=== PATIENT | male | born 2000 | race Caucasian/White ===

== ENCOUNTER 2021-09-14 10:31 | Emergency (ER) | payer BC, SELFPAY ==
--- NOTE | 2021-09-14 10:38 | ED.URI ---
HPI - URI/Sore Throat General Chief Complaint: Upper Respiratory Infection Stated Complaint: cough, fever Time Seen by Provider: 09/14/21 10:41 Source: patient, family, RN notes reviewed and old records reviewed Mode of arrival: ambulatory Limitations: no limitations History of Present Illness HPI Narrative: 21-year-old male presents to the [facility] with mom with complaints of runny nose, postnasal drip, cough that started , 4 days ago. Had a fever yesterday. Patient is COVID vaccinated, not flu vaccinated. Mom mom reports giving Tylenol and ibuprofen. Denies chest pain or abdominal pain. No nausea vomiting or diarrhea MD elicited complaint: fever, cough and rhinorrhea Related Data Home Medications Medication Instructions Recorded Confirmed aripiprazole 15 mg PO DAILY 09/14/21 09/14/21 esomeprazole magnesium [Nexium] 20 mg PO DAILY 09/14/21 09/14/21 fluoxetine 10 mg PO DAILY 09/14/21 09/14/21 Allergies Allergy/AdvReac Type Severity Reaction Status Date / Time No Known Allergies Allergy Verified 09/14/21 10:46 Review of Systems Review of Systems: All systems reviewed & are unremarkable except as noted in HPI and below Constitutional: Constitutional: Reports as per HPI, Denies chills, Reports fever(s) and Denies headache(s) Eyes: Eyes: Reports no additional eye complaints ENT: Reports as per HPI, Denies vertigo, Denies dizziness, Denies headache(s), Denies lip swelling, Reports nasal congestion, Reports nasal discharge, Reports sinus pressure, Denies sore throat and Denies throat swelling Comments: Rhinorrhea Cardiovascular: Cardiovascular: Reports no additional cardiovascular complaints, Denies chest pain, Denies syncope, Denies rapid heart rate and Denies dyspnea Respiratory: Respiratory: Reports as per HPI, Reports cough, Denies dyspnea and Denies wheezing Gastrointestinal: Gastrointestinal: Reports no additional gastrointestinal complaints, Denies abdominal pain, Denies diarrhea, Denies nausea and Denies vomiting Musculoskeletal: Musculoskeletal: Reports no additional musculoskeletal complaints and Denies numbness Integumentary/Breasts: Skin/Breast: Reports system reviewed and no additional complaints, except as docu Neurologic: Reports system reviewed and no additional complaints, except as documented, Denies vertigo, Denies dizziness, Denies syncope, Denies headache(s), Denies focal weakness and Denies numbness Psychiatric: Psychiatric: Reports no additional psychiatric complaints Allergic/Immunologic: Allergic/Immunologic: Reports no additional allergic/immunologic complaints and Denies wheezing PMFSH Past Medical History Medical History (Updated 09/14/21 @ 10:54 by Suad Moreland APRN) Autism H/O gastroesophageal reflux (GERD) Surgical History Surgical History (Updated 09/14/21 @ 10:45 by Suad Moreland APRN) No pertinent past surgical history Social History Social History (Updated 09/14/21 @ 10:46 by Suad Moreland APRN) Living arrangements: with family Gender identity (if verbalized by the patient): Male Comments At the time of my signature, I reviewed and agree with the nursing past medical, surgical, social, and family history. There is no relevant family history pertinent to the patient complaint. Exam Const: General: cooperative, no acute distress, well developed, alert and ill appearing acutely (mild) Nutritional Appearance: well nourished Orientation/consciousness: patient oriented x3 Limitations: no limitations HENMT: Head: normal to inspection Ears: external ears normal, TM's normal bilaterally and EAC's normal General nose exam: Nasal discharge present mucoid Throat: tonsils normal, uvula midline and postnasal drainage Eyes: Conjunctivae: conjunctivae normal Pupils: Equal, round and reactive pupils present Neck: Neck: normal visual inspection, no lymphadenopathy and no meningeal signs Chest: Chest palpation & inspection: normal inspection of the chest
[2021-09-14 10:43] VITALS: BP 118/58; PULSE 79; RESP 16; TEMP 36.4; O2SAT 98
== END 2021-09-14 10:57 | disposition home or self-care (01) ==
PROVIDERS: Emergency Provider Nurse Practitioner; PCP Pediatrics
DX: J10.1 Influenza due to other identified influenza virus with other respiratory manifestations (principal); F84.0 Autistic disorder; K21.9 Gastro-esophageal reflux disease without esophagitis
CPT/HCPCS: 87804; 99213; G0463

== ENCOUNTER 2021-11-30 16:28 | Emergency (ER) | payer BC, SELFPAY ==
[2021-11-30 16:37] VITALS: BP 105/64; PULSE 65; RESP 16; TEMP 36.9; O2SAT 97
--- NOTE | 2021-11-30 16:48 | ED.GENADULT ---
HPI - General Adult General Chief complaint: Wound/Laceration Stated complaint: right foot big toe infection Time Seen by Provider: 11/30/21 16:39 Source: patient and family Mode of arrival: ambulatory Limitations: no limitations History of Present Illness HPI narrative: Mother presents with patient today complaining of pain to the right first toenail and surrounding tissue x1 month. Mother states that patient does trim his toenail too closely at times. Patient states that when he bumps his toe it has occasionally applied and there is pain if he touches the toe. Patient has seen the rubber covering machine operator a few months ago and was told to apply some bacitracin, which they have been doing along with Epson salt soaks without relief. Related Data Home Medications Medication Instructions Recorded Confirmed aripiprazole 15 mg tablet 15 mg PO DAILY 09/14/21 11/30/21 esomeprazole magnesium 20 mg 20 mg PO DAILY 09/14/21 11/30/21 capsule,delayed release (Nexium) fluoxetine 10 mg capsule 10 mg PO DAILY 09/14/21 11/30/21 Allergies Allergy/AdvReac Type Severity Reaction Status Date / Time No Known Allergies Allergy Verified 11/30/21 16:40 Review of Systems Review of Systems: CONSTITUTIONAL: Denies body aches, fever, chills, or sweats. EYES: Denies visual changes, redness, or discharge. ENT: Denies rhinorrhea, congestion, sore throat, or otalgia. CARDIOVASCULAR: Denies chest pain, palpitations, or edema. RESPIRATORY: Denies cough or dyspnea. GASTROINTESTINAL: Denies abdominal pain, nausea, vomiting, or diarrhea. GENITOURINARY: Denies dysuria or hematuria. SKIN: Denies rash, itching, or wounds.+ Pain and redness to the right first toe MUSCULOSKELETAL: Denies back pain, joint pain, or myalgia. NEUROLOGIC: Denies headache, numbness, tingling, or weakness. PSYCH: Denies depression or anxiety. [facility] Past Medical History Medical History Autism H/O gastroesophageal reflux (GERD) Surgical History Surgical History No pertinent past surgical history Social History Social History Gender identity (if verbalized by the patient): Male Comments At time of signature, I have reviewed and agree with nursing past medical, surgical, social and family history unless otherwise noted. Please see nursing chart for further information. There is no relevant family history pertinent to the presenting complaint Exam Narrative: GENERAL: Well-appearing, well-nourished, and in no acute distress. HEAD: Normocephalic, atraumatic. EYES: EOMI. No redness or drainage. Conjunctivae normal. ENT: Mucous membranes pink and moist. NECK: Normal AROM. CHEST: No respiratory distress. EXTREMITIES: Right first toe: Medial nail fold is tender with small amount of purulent discharge. Skin is slightly swollen and erythematous. SKIN: Warm, dry, no rash. Capillary refill normal. Normal skin turgor. NEURO: No focal deficits. Alert and oriented x3. Gait steady. PSYCH: Normal affect. No signs of depression or anxiety. Course Course Level of Care: Express Care Visit Vital Signs Vital signs: Vital Signs Temperature 98.5 F 11/30/21 16:37 Pulse Rate 65 11/30/21 16:37 Respiratory Rate 16 11/30/21 16:37 Blood Pressure 105/64 11/30/21 16:37 Pulse Oximetry 97 11/30/21 16:37 Oxygen Delivery Room Air 11/30/21 16:37 Temperature 98.5 F 11/30/21 16:37 Pulse Rate 65 11/30/21 16:37 Respiratory Rate 16 11/30/21 16:37 Blood Pressure 105/64 11/30/21 16:37 Pulse Oximetry 97 11/30/21 16:37 Oxygen Delivery Room Air 11/30/21 16:37 Reviewed Medical Decision Making Differential Diagnosis Differential Diagnosis: Ingrown toenail, paronychia, cellulitis Vital Signs Vital Signs: Vital Signs Temperature 98.5 F 11/30/21 16:37 Pulse Rate 65 0
== END 2021-11-30 16:58 | disposition home or self-care (01) ==
PROVIDERS: Emergency Provider Nurse Practitioner; PCP Pediatrics
DX: L60.0 Ingrowing nail (principal); F84.0 Autistic disorder; K21.9 Gastro-esophageal reflux disease without esophagitis
CPT/HCPCS: 99213; G0463